=== PATIENT | female | born 1960 ===

== ENCOUNTER 2017-12-09 01:26 | Inpatient (IN) | payer OTHER ==
--- NOTE | 2017-12-01 15:38 | History & Physical Pre-Op ---
General Information and [facility] MD Statement: I have seen and personally examined NIKI LIANG and documented this H &P. The patient is a 56 year old F who presented with a patient stated chief complaint of centralized low back pain radiating to her right anterior thigh and into her knee, predominantly with occasional left buttock, posterior thigh, and right calf pain. Source of Information: patient, old records Exam Limitations: no limitations History of Present Illness: Niki is a 57-year-old woman who is complaining of progressively worsening centralized low back pain that radiates predominantly into her right anterior thigh and into her knee. She will occasionally experience pain into her right calf and along her left posterior thigh into her knee. She has experienced occasional numbness into her right foot. She states the pain is a 10/10 in intensity with standing or walking. She denies any bowel or bladder changes. She does feel as if her legs are heavy and weak. She is unable to continue with her normal activities of daily living. Niki's MRI scan shows severe degenerative changes at L2-3, L3-4, L4-5, and L5-S1. She does have spondylolisthesis at L4-5 with facet arthropathy and lateral stenosis at all 3 levels, significantly less, but present at L5-S1. Niki is status post right L4-5 and L5-S1 lumbar decompression and fusion with local bone from June 2013 and is status post revision posterior lumbar decompression fusion with local bone at L1-2, L2-3, L3-4, and L4-5 from September 2013. Due to Niki's progressively worsening symptoms and MRI findings, she wants nothing more to do with nonsurgical treatment. 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 She has been consented for a revision posterior lumbar decompression and fusion with inspection of fusion and possible Instrumentation with iliac crest bone grafting L2-S1 on 12/09/2017. Allergies/Medications Allergies: Coded Allergies: Penicillins (RASH 12/05/17) azithromycin (NAUSEA 12/05/17) ciprofloxacin (From CIPRO) (UNKNOWN 12/05/17) Home Med list Calcium Carbonate/Vitamin D3 (Calcium 500 + D Tablet) (Unknown Strength) TABLET (Unknown Dose) PO DAILY SUPPLEMENT (Reported) Multivitamin/Iron/Folic Acid (Multi-Day Plus Iron Tablet) (Unknown Strength) TABLET (Unknown Dose) PO DAILY SUPPLEMENT (Reported) Compliance With Home Meds: GOOD Past History Medical History Neurological: NONE EENT: NONE Cardiovascular: NONE Respiratory: NONE Gastrointestinal: NONE Hepatic: NONE Renal: nephrolithiasis Musculoskeletal: chronic back pain, disk herniation, degen joint disease, osteoarthritis, sciatica, spinal stenosis Psychiatric: NONE Endocrine: obesity Blood Disorders: anemia Cancer(s): NONE 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 PLDF L1-2, L2-3, L3-4, and L4-5 with local bone 09/13/2013 Past Family/Social History Family History Relations & Conditions if any MOTHER (Alive and Well). Age 79. FATHER, , Age 70s; Cause: Myocardial infarction. BROTHER (Diabetes). Psychosocial History Where Do You Live? Home Primary Language: Divehi Smoking Status: Former Smoker (quit 16 years ago) ETOH Use: occasional use (2x/week) Illicit Drug Use: denies illicit drug use Other Social History: . 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 Medication List Current Psychiatric Med(s): Arcoxia 60mg daily-stopped 11/25/17 Multivitamin with Iron daily Calcium with Vitamin D daily Exam & Diagnostic Data Last 24 Hrs of Vital Signs/I&O Height: 5'6" Weight: 300lbs. Physical Exam General Appearance Alert, Oriented X3, Cooperative, Mild Distress Skin No Rashes, No Breakdown, No Significant Lesion HEENT Atraumatic, PERRLA, EOMI, Mucous Membr. moist/pink Neck Supple, No JVD, No thryomegaly, +2 Carotid Pulse wo Bruit Lymphatic Cervical nl Cardiovascular Regular Rate, Normal S1, Normal S2, No Murmurs Lungs Clear to Auscultation, Normal Air Movement Abdomen Normal Bowel Sounds, Soft, No Tenderness, Globoid Neurological Normal Speech, Normal Tone, Sensation Intact, Weak right Quad +3/5 and +4/5 on the left, Absent bilateral patellar reflexes, +1 bilateral achilles reflexes Extremities No Clubbing, No Cyanosis, No Edema Vascular Normal Pulses Assessment/Plan Assessment/Plan: Assessment: DDD L2-3, L3-4, and L4-5 with spondylolisthesis. Facet arthropathy and lateral stenosis at L2-3, L3-4, L4-5, and L5-S1. Plan: Niki is scheduled for a revision posterior lumbar decompression and fusion L2-L5 with laminectomy and possible instrumentation with iliac crest bone grafting at L2-S1 on 12/09/2017. We discussed the procedure in full detail as well as the pre-and postoperative course, follow-up care, and anticipated recovery. We also discussed the do's and don'ts and postoperative discharge instructions. We will get an MRI of the cervical spine during her hospital stay. We discussed the benefits, alternatives, and risks, not to exclude, , paralysis, infection, bleeding, continued pain, failure of the surgery, need for future surgery, DVT, vascular injury, CSF leak, etc., and given these risks, she still wishes to proceed. She is a Spiritism and is aware that blood products may be required if necessary. She acknowledges this and is comfortable receiving a blood transfusion if medically necessary. She is also aware that we will use the Cell Saver. She is scheduled to follow-up with her primary care physician, Dr. Moreno on 11/12/2017 for preoperative clearance. She admits that she has done well with morphine and Percocet for postoperative pain control in the past. She will stop her Arcoxia as of 11/25/2017. Any changes in this patient's plan is based on this patient's outpatient clinical presentation. As Ranked By This Provider Problem List: 1. Osteoarthritis 2. Renal stones 3. Anemia 4. Neck pain Copies To: Kanu RAMIREZ,Kyle Attending MD Review Statement Attending Statement Attending MD Statement: examined this patient, discuss w/resident/PA/SEWING MACHINES SALESPERSON, agreed w/resident/PA/SEWING MACHINES SALESPERSON, reviewed images
[~2017-12-09] VITALS: Ht 168.9 cm; Wt 155.6 kg
[~2017-12-09 01:26] MED LIST: CALCIUM 500 +1 EAC5 PO; MULTI-DAY PLUS1 EACH PO
--- NOTE | 2017-12-09 12:05 | Operative Report ---
Operative/Inv Procedure Report Surgery Date: 12/09/17 Name of Procedure: Lumbosacral inspection of fusion mass L1 S1 laminectomies L1-L2 L3 L4 L5. Discectomy foraminotomy L1 through L5. Pedicle screw fixation bilateral L2-L3. Harvesting iliac crest right posterior bone graft. Reconstruction of graft site with Master graft. Lateral intertransverse process fusion L1-L2, L2-L3, L3-L4, L4-L5, L5-S1. Use of fluoroscopy. Pre-Operative Diagnosis: Spinal stenosis and instability L1 through S1 nonunion previous fusion lumbosacral spine. Post-Operative Diagnosis: Same Estimated Blood Loss: 500cc Surgeon/Historic Sites Registrar: Kanu RAMIREZ,Kyle Mcdonnell M.D. Anesthesia: general endotracheal tube Monitors: Neuro Operative/Procedure Note Note: After adequate general anesthesia was achieved the patient was placed in the prone position. The back and iliac crest were sterilely prepped and draped. The previous incision was used and extended several centimeters distally and proximally. The dissection was carried down to the dorsal elements from L1 to the sacrum. The previous fusion was inspected and found to contain nonunions. The high-speed bur was used to decorticate scar tissue. The previous laminectomy sites were easily identified. Laminectomies were performed at L1-L2 L3-L4 and L5. The pedicle screw instrumentation was used to create corticotomies and L2 and L3 the pedicles were identified with the probe tapped tapping at 5.5 and 6.5 mm the ball tip probe was used. The tapping was found to be intracortical. Pedicle screws were then placed bilaterally with excellent purchase at L2 and L3. Fluoroscopy was used during the instrumentation. An incision was made over the right iliac crest and the Colleen retractor was placed. Following subperiosteal dissection of the crest the curettes and osteotomes were used to collect morcellized corticocancellous and cancellous bone. Was irrigated packed with Master graft and Gelfoam and closed in layers with absorbable suture with rashida in the skin. The lateral intertransverse process region was decorticated with the high-speed bur from L1 to the sacrum. Gelfoam was laid over the laminotomy sites. The facets were decorticated with the pencil point bur. The dorsal elements were decorticated with the high-speed bur. Decortication was from L1 to S1 bilaterally. The wound was copiously irrigated Gelfoam remained in place the bone graft was packed laterally performing intertransverse process fusion from L1 to S1. The wound was again irrigated rods were placed and compression was applied across the L2-L3 facet joints which were decorticated with the pencil point bur. The rods were locked in the position construct was checked in AP and lateral plane and found to be appropriate using fluoroscopy. Wound was copiously irrigated and a closure the lumbodorsal fascia was performed with absorbable suture as was subcutaneous tissue the skin was closed with nylon. After placement of the pedicle screws the neuro monitoring device was used and all screws were found to be no response. After placement sterile bandages the patient was log rolled onto the stretcher and taken to the recovery room.
--- NOTE | 2017-12-09 13:34 | Patient Discharge Instructions ---
Acute Coronary Syndrome Inclusion Criteria At DC or during hospital stay patient has or had the following: ACS DIAGNOSIS No Discharge Core Measures Meds if any: Prescribed or Continued at Discharge Meds if any: NOT Prescribed or Continued at Discharge Congestive Heart Failure Inclusion Criteria At DC or during hospital stay patient has or had the following: CHF DIAGNOSIS No Discharge Core Measures Meds if any: Prescribed or Continued at Discharge Meds if any: NOT Prescribed or Continued at Discharge Cerebrovascular accident Inclusion Criteria At DC or during hospital stay patient has or had the following: CVA/TIA Diagnosis No Discharge Core Measures Meds if any: Prescribed or Continued at Discharge Meds if any: NOT Prescribed or Continued at Discharge Venous thromboembolism Inclusion Criteria VTE Diagnosis No VTE Type NONE VTE Confirmed by (Test) NONE Discharge Core Measures - Per Current guidelines, there needs to be overlap - treatment for the first 5 days of Warfarin therapy. - If discharged on Warfarin prior to 5 days of - overlap therapy, the patient will need to be - assessed for post discharge needs including - *Post discharge parental anticoagulation - *Warfarin and/or parental anticoagulation education - *Follow up date to check INR post discharge At least 5 days overlap therapy as Inpatient No Meds if any: Prescribed or Continued at Discharge Note: Overlap Therapy is Warfarin and Anticoagulant Meds if any: NOT Prescribed or Continued at Discharge
[2017-12-09] MEDS ORDERED: MULTIVITAMINS1 EAC9 PO (13:38)
[2017-12-09] MEDS ORDERED: VITAMIN D31000 UNI2 PO (13:38)
[2017-12-09] MEDS ORDERED: COLACE100 M1 PO (13:38)
[2017-12-09] MEDS ORDERED: DULCOLAX10 M1 RC (13:38)
[2017-12-09] MEDS ORDERED: MILK OF MA400 MG/52 PO (13:38)
[2017-12-09] MEDS ORDERED: OS-CAL 500+D31 EAC1 PO (13:38)
[2017-12-09] MEDS ORDERED: PERCOCET 5-3251 EACH PO (13:38)
[2017-12-09] MEDS ORDERED: TYLENOL EXTRA500 M2 PO (13:38)
[2017-12-09 13:49] LABS: ABSOLUTE BASOPHIL COUNT 0 /CUMM (0.0-0.2); ABSOLUTE EOSINOPHIL COUNT 0 /CUMM (0.0-0.7); ABSOLUTE MONOCYTE COUNT 0.2 /CUMM (0.10-0.60); HEMATOCRIT 35.9 % (37-47)
[2017-12-09 13:57] LABS: ABSOLUTE GRANULOCYTE CT 9.6 /CUMM (1.4-6.5); ABSOLUTE LYMPH COUNT 0.5 /CUMM (1.2-3.4); BASOPHIL % 0.1 % (0.0-2.0); EOSINOPHIL % 0 % (0-5); MEAN CORPUSCULAR HGB 29.5 PG (27.0-31.0); MEAN CORPUSCULAR HGB CONC 32.1 G/DL (33.0-37.0); MEAN CORPUSCULAR VOLUME 92.1 FL (81.0-99.0); MEAN PLATELET VOLUME 7.2 FL (7.4-10.4); PLATELET COUNT 250 /CUMM (130-400); RBC DISTRIBUTION WIDTH 14.3 % (11.5-14.5); WHITE BLOOD CELL COUNT 10.4 /CUMM (4.8-10.8)
[2017-12-09 14:06] LABS: GRANULOCYTE % 92.6 % (42.2-75.2)
[2017-12-09 15:30] VITALS: BP 132/72
--- NOTE | 2017-12-09 15:31 | PN- Orthopedic ---
Subjective Subjective: Postop check: Patient comfortable, pain medication is effective. She denies any neurologic symptoms in the lower extremities except for very mild right dorsal foot numbness which she believes is around the same as preoperatively. Santos has been removed, awaiting void. Objective Vital Signs and I&Os Intake & Output 12/09 1600 12/09 0800 12/09 0000 12/08 1600 12/08 0800 12/08 0000 Intake Total Output Total Balance Patient 300 lb Weight Vital signs stable, afebrile Physical Exam: Well-developed well-nourished no apparent distress. HEENT: Atraumatic, extraocular motion intact Neck: Supple, no lymphadenopathy Respiratory: No respiratory distress Back: Dressing clean dry and intact, Bilateral lower extremities with sensation motor grossly intact, no focal deficits Extremities: No edema, no calf pain Neuro: Alert and oriented x3 Psych: Mood affect normal, normal memory normal judgment. Skin: Warm and dry, no rash on exposed skin Assessment/Plan Assessment/Plan Postoperative day #0 status post Lumbosacral inspection of fusion mass L1-S1, laminectomies L1-L2 L3 L4 L5. Discectomy foraminotomy L1 through L5. Pedicle screw fixation bilateral L2-L3, fusion L1-L2, L2-L3, L3-L4, L4-L5, L5-S1. Secondary to Spinal stenosis and instability L1 through S1 nonunion previous fusion lumbosacral spine. Perioperative antibiotics. Pain medication as needed. Out of bed Due to void after Santos removal Physical therapy, weightbearing as tolerated IV fluids until tolerating adequate by mouth Regular diet Follow a.m. labs ALPS for DVT prophylaxis Regular home meds Dressing change postop day 2 Core Measures Venous Thromboembolism VTE Risk Factors Age>40 No Mechanical VTE Prophylaxis d/t N/A MechProphylax Ordered No VTE Pharm Prophylaxis d/t Other (surgeon preference)
--- NOTE | 2017-12-09 16:18 | RADIOLOGY REPORT ---
EXAMINATION: CR ABDOMEN/INTRAOPERATIVE FLUOROSCOPY CLINICAL INDICATION: L2-S1 laminectomy and fusion in OR COMPARISON: Lumbar spine films dated 09/13/2013. TECHNIQUE/FINDINGS: Fluoroscopic equipment was dedicated to the operating room for the performance of an intraoperative procedure. Several (5) spot films were acquired and are archived in PACS. Please refer to operative notes for procedural detail. FLUOROSCOPY TIME: 40 seconds. IMPRESSION: Administrative dictation for intraoperative fluoroscopy and image archiving in PACS. Please refer to operative notes for details.
[2017-12-09 18:44] VITALS: BP 122/60
[2017-12-09 23:19] VITALS: BP 114/62
[2017-12-10 03:00] VITALS: BP 116/58
[2017-12-10 07:00] VITALS: BP 108/62
[2017-12-10 08:06] LABS: ABSOLUTE BASOPHIL COUNT 0 /CUMM (0.0-0.2); ABSOLUTE EOSINOPHIL COUNT 0 /CUMM (0.0-0.7); EOSINOPHIL % 0 % (0-5); MEAN PLATELET VOLUME 7.6 FL (7.4-10.4)
--- NOTE | 2017-12-10 08:25 | PN- Orthopedic ---
Subjective Subjective: feeling well. pain well controlled, does admit to some neck pain, ambulating to bathroom, voiding spontaneously, denies parasthesias, no cp/sob/n/v. Objective Vital Signs and I&Os Vital Signs Date Time Temp Pulse Resp B/P B/P Pulse O2 O2 Flow FiO2 Mean Ox Delivery Rate 12/10 08 96 Nasal 1.0L Cannula 12/10 0700 98.3 71 18 108/62 96 12/10 0300 98.0 76 18 116/58 94 12/10 0000 96 Nasal 1.0L Cannula 12/09 2319 98.6 68 18 114/62 94 Nasal 1.0L Cannula 12/09 1903 Nasal 1.0L Cannula 12/09 1844 98.6 74 18 122/60 96 Nasal 2.0L Cannula 12/09 1650 94 Nasal 2.0L Cannula 12/09 1530 97.9 68 18 132/72 93 Nasal 3.0L Cannula Intake & Output 12/10 1600 12/10 0800 12/10 0000 12/09 1600 12/09 0800 12/09 0000 Intake Total 980 780 Output Total 400 200 Balance -400 780 780 Intake, IV 500 300 Intake, Oral 480 480 Output, Urine 400 200 Patient 344 lb Weight Weight Standing Scale Measurement Method Physical Exam: gen- nad card- rrr pulm- no audbile wheeze abd-obese nt back- incision w minimal serosang drainage on dressing, wounds clean, no erythema, ttp at incisions, redressed. ext: calves soft nt, alps on. gross motor & sensate intact bl ankles/feet Results Last 48 Hours of Labs: Laboratory Tests 12/10 12/09 0630 1335 Hematology CBC w Diff Pending NO MAN DIFF REQ WBC (4.8 - 10.8 /CUMM) Pending 10.4 RBC (4.20 - 5.40 /CUMM) Pending 3.90 L Hgb (12.0 - 16.0 G/DL) Pending 11.5 L Hct (37 - 47 %) Pending 35.9 L MCV (81.0 - 99.0 FL) Pending 92.1 MCH (27.0 - 31.0 PG) Pending 29.5 MCHC (33.0 - 37.0 G/DL) Pending 32.1 L RDW (11.5 - 14.5 %) Pending 14.3 Plt Count (130 - 400 /CUMM) Pending 250 MPV (7.4 - 10.4 FL) Pending 7.2 L Gran % (42.2 - 75.2 %) 92.6 H Lymphocytes % (20.5 - 51.1 %) 5.3 L Monocytes % (1.7 - 9.3 %) 2.0 Eosinophils % (0 - 5 %) 0 Basophils % (0.0 - 2.0 %) 0.1 Absolute Granulocytes (1.4 - 6.5 /CUMM) 9.6 H Absolute Lymphocytes (1.2 - 3.4 /CUMM) 0.5 L Absolute Monocytes (0.10 - 0.60 /CUMM) 0.2 Absolute Eosinophils (0.0 - 0.7 /CUMM) 0 Absolute Basophils (0.0 - 0.2 /CUMM) 0 Assessment/Plan Assessment/Plan A- POD2 sp L2-S1 lami/fusion, with neck pain, stable. P- prn po pain meds hl ivf last dose postop abx now reg diet as tolerated cbc pdg mri neck today oob, ambulate as tolerated dc planning will dw attending Core Measures Venous Thromboembolism VTE Risk Factors Age>40 No Mechanical VTE Prophylaxis d/t N/A MechProphylax Ordered No VTE Pharm Prophylaxis d/t Other (surgeon preference)
[2017-12-10 08:40] LABS: ABSOLUTE GRANULOCYTE CT 11.1 /CUMM (1.4-6.5); ABSOLUTE LYMPH COUNT 0.8 /CUMM (1.2-3.4); ABSOLUTE MONOCYTE COUNT 1.6 /CUMM (0.10-0.60); BASOPHIL % 0 % (0.0-2.0); GRANULOCYTE % 82.4 % (42.2-75.2); MEAN CORPUSCULAR HGB 29.5 PG (27.0-31.0); PLATELET COUNT 228 /CUMM (130-400); RED BLOOD CELL CT 3.36 /CUMM (4.20-5.40); WHITE BLOOD CELL COUNT 13.4 /CUMM (4.8-10.8)
[2017-12-10 08:43] LABS: HEMATOCRIT 30.9 % (37-47)
--- NOTE | 2017-12-10 13:00 | CT SCAN REPORT ---
EXAMINATION: CT CERVICAL SPINE WITHOUT CONTRAST CLINICAL INFORMATION: Neck pain. COMPARISON: No relevant prior imaging. TECHNIQUE: No relevant prior imaging. DLP: 341.84 mGy-cm FINDINGS: There is nonspecific straightening of the cervical lordosis. Alignment is otherwise normal. Vertebral body heights are preserved. There is no acute fracture. No abnormal prevertebral soft tissue swelling. There is loss of intervertebral disc height with associated sclerotic degenerative endplate changes and disc osteophyte spurring at the levels of C4-C5, C5-C6, and C6-C7. The canal is not well visualized below the level of C4 due to inherent limitations of CT. It is suspected that there is mild canal stenosis at C5-C6 and C6-C7. Asymmetric uncovertebral joint spurring causes moderate left neuroforaminal encroachment at C5-C6 and C6-C7. Mild right neuroforaminal encroachment at C6-C7. Soft tissues of the neck are unremarkable. Visualized lung apices are clear. IMPRESSION: Mild degenerative spondylosis at C4-C5, C5-C6, and C6-C7. No evidence of acute fracture and no spinal subluxation.
[2017-12-10 13:55] VITALS: BP 142/60
--- NOTE | 2017-12-10 15:12 | PN- Orthopedic ---
Dorian SADLER,Miriam 12/10/17 1502: Subjective Subjective: Patient c/o expected postop incisional pain. No leg pain. No numbness. Patient ambulating without difficulty. Voiding without problems. Jeni. po. No N/V, fever /chills, CP, SOB. + Neck pain radiaitng to right arm. Jeni. pain meds. Review of Systems: Remarkable for the above complaints. Objective Vital Signs and I&Os Vital Signs Date Time Temp Pulse Resp B/P B/P Pulse O2 O2 Flow FiO2 Mean Ox Delivery Rate 12/10 1355 98.7 80 20 142/60 96 Room Air 12/10 0800 96 Nasal 1.0L Cannula 12/10 0700 98.3 71 18 108/62 96 12/10 0300 98.0 76 18 116/58 94 12/10 0000 96 Nasal 1.0L Cannula 12/09 2319 98.6 68 18 114/62 94 Nasal 1.0L Cannula 12/09 1903 Nasal 1.0L Cannula 12/09 1844 98.6 74 18 122/60 96 Nasal 2.0L Cannula 12/09 1650 94 Nasal 2.0L Cannula 12/09 1530 97.9 68 18 132/72 93 Nasal 3.0L Cannula Intake & Output 12/10 1600 12/10 0800 12/10 0000 12/09 1600 12/09 0800 12/09 0000 Intake Total 1080 1280 980 780 Output Total 350 800 200 Balance 730 480 780 780 Intake, IV 600 800 500 300 Intake, Oral 480 480 480 480 Output, Urine 350 800 200 Patient 344 lb Weight Weight Standing Scale Measurement Method Physical Exam General Appearance: alert, awake, mild distress Neck: limited range of motion, +Hoffmans on right., Weak right deltoid muscle +3 /5 Respiratory: normal breath sounds Cardiovascular: regular rate/rhythm Abdomen: normal bowel sounds, soft, non-tender Back: Incision C/D/I. Neurologic/Psychiatric: No new or worsening gross motor or sensory loss in floyd. lower extremities. Skin: intact, warm/dry Current Medications: Current Medications Sig/Asim Start time Last Medication Dose Route Stop Time Status Admin Acetaminophen 650 MG Q4P PRN 12/09 1315 AC PO Bisacodyl 10 MG DAILY NEEDED PRN 12/09 1315 AC ME Calcium 600 MG BID 12/09 2200 AC 12/10 PO 1003 Cholecalciferol 1,000 IU DAILY 12/10 1000 AC 12/10 PO 1004 Clindamycin 600 MG IQ8 12/09 1600 DC 12/10 Dextrose/Water 50 ML IV 12/10 08 0757 Clindamycin 600 MG ONCE 12/09 0000 DC IV 12/09 2359 Docusate Sodium 100 MG TID 12/09 1600 AC 12/10 PO 1003 Lactated Ringer's 1,000 ML Q10H 12/09 1330 DC 12/10 IV 0102 Magnesium Hydroxide 30 ML Q8P PRN 12/09 1330 AC PO Morphine Sulfate 1 MG Q3P PRN 12/09 1315 DC 12/09 IV 1540 Multivitamins 1 TAB DAILY 12/10 1000 AC 12/10 PO 1004 Ondansetron HCl 4 MG Q6P PRN 12/09 1315 AC IV Oxycodone/ 1 TAB Q4P PRN 12/09 1315 AC Acetaminophen PO Oxycodone/ 2 TAB Q4P PRN 12/09 1315 AC 12/10 Acetaminophen PO 1202 Patient Medication 1 ED ONE ONE 12/10 1045 DC Teaching ED 12/10 1046 Trimethobenzamide HCl 200 MG Q6P PRN 12/09 1315 AC IM Results Last 48 Hours of Labs: Laboratory Tests 12/10 12/09 0630 1335 Hematology CBC w Diff NO MAN DIFF REQ NO MAN DIFF REQ WBC (4.8 - 10.8 /CUMM) 13.4 H 10.4 RBC (4.20 - 5.40 /CUMM) 3.36 L 3.90 L Hgb (12.0 - 16.0 G/DL) 9.9 L 11.5 L Hct (37 - 47 %) 30.9 L 35.9 L MCV (81.0 - 99.0 FL) 92.0 92.1 MCH (27.0 - 31.0 PG) 29.5 29.5 MCHC (33.0 - 37.0 G/DL) 32.0 L 32.1 L RDW (11.5 - 14.5 %) 14.0 14.3 Plt Count (130 - 400 /CUMM) 228 250 MPV (7.4 - 10.4 FL) 7.6 7.2 L Gran % (42.2 - 75.2 %) 82.4 H 92.6 H Lymphocytes % (20.5 - 51.1 %) 5.9 L 5.3 L Monocytes % (1.7 - 9.3 %) 11.7 H 2.0 Eosinophils % (0 - 5 %) 0 0 Basophils % (0.0 - 2.0 %) 0 0.1 Absolute Granulocytes (1.4 - 6.5 /CUMM) 11.1 H 9.6 H Absolute Lymphocytes (1.2 - 3.4 /CUMM) 0.8 L 0.5 L Absolute Monocytes (0.10 - 0.60 /CUMM) 1.6 H 0.2 Absolute Eosinophils (0.0 - 0.7 /CUMM) 0 0 Absolute Basophils (0.0 - 0.2 /CUMM) 0 0 Assessment/Plan Assessment/Plan Assessment: 1. s/p Rev. PLDF L1-S1 with Instr. (L2-3) and ICBG (L1-S1). 2. Neck Pain with DDD/Stenosis Plan: Continue po pain meds. Ambulate with PT Bowel regimen Plan for ACDF/PCDF on 12/12/17 Will F/U in am. Check CBC in am Problem List: 1. Anemia 2. Renal stones 3. Osteoarthritis 4. Neck pain Core Measures Venous Thromboembolism VTE Risk Factors Surgery No Mechanical VTE Prophylaxis d/t Early Ambulation No VTE Pharm Prophylaxis d/t Surgical Contraindication (surgeon preference) Attending MD Review Statement Attending Statement Attending MD Statement: examined this patient, discuss w/resident/PA/IRON MELTER, agreed w/resident/PA/IRON MELTER
[2017-12-10 22:23] VITALS: BP 120/70
[2017-12-11 06:00] VITALS: BP 136/72
--- NOTE | 2017-12-11 07:52 | PN- Orthopedic ---
Subjective Subjective: Awake, alert Sitting up eating - tolerating diet No complaints overnight Pain is controlled with meds Awaiting OR in AM Objective Vital Signs and I&Os Vital Signs Date Time Temp Pulse Resp B/P B/P Pulse O2 O2 Flow FiO2 Mean Ox Delivery Rate 12/11 0600 100.3 97 18 136/72 92 12/10 2223 99.8 99 20 120/70 96 Room Air 12/10 1355 98.7 80 20 142/60 96 Room Air 12/10 0800 96 Nasal 1.0L Cannula Intake & Output 12/11 0812/11 0000 12/10 1600 12/10 0812/10 0000 12/09 1600 Intake Total 474 591 6845 1280 980 780 Output Total 1600 1000 350 800 200 Balance -1500 -90 730 480 780 780 Intake, IV 10 600 800 500 300 Intake, Oral 100 900 480 480 480 480 Number 0 Bowel Movements Output, Urine 1600 1000 350 800 200 Patient 344 lb Weight Weight Standing Scale Measurement Method Physical Exam: Gen: alert and oriented times three Chest: Clear anteriorly bilaterally Abd: normal bowel sounds, soft, non-tender Wd: dressing clean and dry Neuro: No new or worsening gross motor or sensory loss in floyd. 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 otherwise LUE WNL Current Medications: Current Medications Sig/Asim Start time Last Medication Dose Route Stop Time Status Admin Acetaminophen 650 MG Q4P PRN 12/09 1315 AC PO Bisacodyl 10 MG DAILY NEEDED PRN 12/09 1315 AC AZ Calcium 600 MG BID 12/09 2200 AC 12/10 PO 2028 Cholecalciferol 1,000 IU DAILY 12/10 1000 AC 12/10 PO 1004 Clindamycin 600 MG IQ8 12/09 1600 DC 12/10 Dextrose/Water 50 ML IV 12/10 0829 0757 Docusate Sodium 100 MG TID 12/09 1600 AC 12/10 PO 2029 Lactated Ringer's 1,000 ML Q10H 12/09 1330 DC 12/10 IV 0102 Magnesium Hydroxide 30 ML Q8P PRN 12/09 1330 AC PO Morphine Sulfate 1 MG Q3P PRN 12/09 1315 DC 04 IV 1540 Multivitamins 1 TAB DAILY 12/10 1000 AC 12/10 PO 1004 Ondansetron HCl 4 MG Q6P PRN 12/09 1315 AC IV Oxycodone/ 1 TAB Q4P PRN 12/09 1315 AC Acetaminophen PO Oxycodone/ 2 TAB Q4P PRN 12/09 1315 AC 12/11 Acetaminophen PO 0735 Patient Medication 1 ED ONE ONE 12/10 1045 DC Teaching ED 12/10 1046 Trimethobenzamide HCl 200 MG Q6P PRN 12/09 1315 AC IM Assessment/Plan Assessment/Plan 57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
[2017-12-11 08:15] LABS: ABSOLUTE BASOPHIL COUNT 0.1 /CUMM (0.0-0.2); ABSOLUTE EOSINOPHIL COUNT 0 /CUMM (0.0-0.7); ABSOLUTE GRANULOCYTE CT 12.7 /CUMM (1.4-6.5); ABSOLUTE LYMPH COUNT 1.9 /CUMM (1.2-3.4); BASOPHIL % 0.3 % (0.0-2.0); EOSINOPHIL % 0.1 % (0-5); GRANULOCYTE % 76.1 % (42.2-75.2); HEMATOCRIT 27.4 % (37-47); MEAN CORPUSCULAR HGB 29.9 PG (27.0-31.0); MEAN CORPUSCULAR HGB CONC 32.7 G/DL (33.0-37.0); MEAN CORPUSCULAR VOLUME 91.5 FL (81.0-99.0); RBC DISTRIBUTION WIDTH 14.2 % (11.5-14.5); RED BLOOD CELL CT 2.99 /CUMM (4.20-5.40); WHITE BLOOD CELL COUNT 16.7 /CUMM (4.8-10.8)
[2017-12-11 14:23] VITALS: BP 124/76
--- NOTE | 2017-12-11 16:08 | PN- Orthopedic ---
Subjective Subjective: Patient doing well. No preop leg pain. Ambulating with PT/Nursing without difficulty. + NEck pain radiating to right arm/trap. No N/V. Jeni. po. No pain meds needed. + Voiding and flatus. Review of Systems: Remarkable for the above complaints. Objective Vital Signs and I&Os Vital Signs Date Time Temp Pulse Resp B/P B/P Pulse O2 O2 Flow FiO2 Mean Ox Delivery Rate 12/11 1423 99.0 94 20 124/76 96 Room Air 12/11 1100 98.4 12/11 0600 100.3 97 18 136/72 92 12/10 2223 99.8 99 20 120/70 96 Room Air Intake & Output 12/11 1600 12/11 0800 12/11 0000 12/10 1600 12/10 0812/10 0000 Intake Total 500 751 183 9382 1280 1760 Output Total 1200 1600 1000 350 800 200 Balance -700 -1500 -90 507 578 3452 Intake, IV 0 10 600 800 800 Intake, Oral 500 100 900 480 480 960 Number 0 0 Bowel Movements Output, Urine 1200 1600 1000 350 800 200 Patient 344 lb Weight Weight Standing Scale Measurement Method Physical Exam General Appearance: well developed/nourished, no apparent distress, alert, awake , comfortable Neck: limited range of motion, + Hoffmans on right. Weak right deltoid. +3/5 Respiratory: normal breath sounds, no respiratory distress Cardiovascular: regular rate/rhythm Abdomen: soft, non-tender, + globoid Back: Incisions C/D/I. Dressings changed. Neurologic/Psychiatric: Neurovascularly stable in bilateral lower extremities with no new or worsening gross motor or sensory loss. Skin: intact, normal color, warm/dry Assessment/Plan Assessment/Plan Assessment: 1. S/P Rev. PLDF L2-3 with Instr. and L1-S1 with ICBG. 2. 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 NPO after MN IVF after MN Plan for ACDF/PCDF C4-7 on 12/12/17. Will F/U in am. Problem List: 1. Anemia 2. Renal stones 3. Osteoarthritis 4. Neck pain Core Measures Venous Thromboembolism VTE Risk Factors Surgery No Mechanical VTE Prophylaxis d/t Early Ambulation No VTE Pharm Prophylaxis d/t Surgical Contraindication (surgeon preference) Attending MD Review Statement Attending Statement Attending MD Statement: examined this patient, discuss w/resident/PA/CUT OFF [employer]WYER SHINGLE MILL, agreed w/resident/PA/C[employer]INGLE [employer]
[2017-12-11 18:30] VITALS: BP 130/60
[2017-12-12 05:34] VITALS: BP 120/78
--- NOTE | 2017-12-12 11:56 | Operative Report ---
Operative/Inv Procedure Report Surgery Date: 12/12/17 Name of Procedure: Anterior cervical discectomy fusion C4 5 C5-C6 C6 7 with interdiscal cage and autologous iliac crest bone graft through plate fixation C4 to C7. Harvesting of left anterior structural bone graft iliaccrest. Master graft implant graft site should fluoroscopy. Pre-Operative Diagnosis: Cervical kyphosis and disc herniation C4 5 C5 6 C6 7 cervical myelopathy. Post-Operative Diagnosis: Same Estimated Blood Loss: 50ml to 100ml Surgeon/Practice Director: Kanu RAMIREZ,Kyle Garcia MD Anesthesia: general endotracheal tube Operative/Procedure Note Note: After induction of general anesthesia patient was placed in the supine position with the head turned to the left and the shoulders taped to the side. The left anterior iliac crest and right side of the neck were sterilely prepped and draped. An incision was made along the skin crease carried sharply through the platysma. Dissection was carried medial to the neurovascular bundle lateral to the visceral structures and a bent needle was placed within the disc space and fluoroscopy was used to identify surgical level. Deep retractors were placed in a sharp annulotomy was created in the significantly degenerative disks at C56 and C6 7 the disks were debrided with the high-speed bur is obvious bone on bone contact at C5 6 and C6 7 less so at C4 5. Sharp annulotomy was created C4 5 and the debridement of the disc space was carried posteriorly at all 3 levels through the annulus and posterior longitudinal ligament. There is significant stenosis on the right side and the foramen at C56 and C6 7. The endplates were debrided with the high-speed bur the wound was packed and incision was made of the left anterior iliac crest and a subperiosteal dissection was carried medial and lateral to the crest deep retractors were placed. Nestling so was used to collect a structural tricortical graft was irrigated packed with Master graft closed in layers with double suture and rashida in the skin. Trials were used and 6 mm disks implants were selected for each level the cages were packed with bone graft and tamped into position at C4 5 C5 6 and C6 7. An anterior plate was then applied with excellent purchase in all 8 screws. The construct was checked in AP and lateral plane and found to be appropriate. The wound was irrigated hemostasis been achieved. A closure of the platysma was performed with absorbable suture the skin was closed with subcuticular nylon. The patient was prepared for posterior procedure.
[2017-12-12 14:30] VITALS: BP 128/70
--- NOTE | 2017-12-12 16:01 | PN- Orthopedic ---
Subjective Subjective: POST-OP NOTE Reports some neck discomfort. Taking ice chips. No nausea. Not yet out of bed. No dizziness. No shortness of breath. No chest pains. Objective Vital Signs and I&Os Vital Signs Date Time Temp Pulse Resp B/P B/P Pulse O2 O2 Flow FiO2 Mean Ox Delivery Rate 12/12 1430 98.4 65 16 128/70 92 Nasal 2.0L Cannula 12/12 05 98.2 85 22 120/78 98 Room Air 12/11 2100 98.7 12/11 1830 100.7 97 18 130/60 94 Room Air Intake & Output 12/12 1600 12/12 0800 12/12 0000 12/11 1600 12/11 0812/11 0000 Intake Total 1800 675 490 600 100 910 Output Total 935 0746 445 0689 1600 1000 Balance 865 -775 40 -600 -1500 -90 Intake, IV 1800 675 0 10 Intake, Oral 490 600 100 900 Number 0 0 Bowel Movements Output, Urine 935 2757 620 9280 1600 1000 Physical Exam: General - alert & oriented x 3. comfortable. no acute distress. Neck - soft cervical collar in place. dressing c/d/i. no hematoma. no drains. Lungs - clear bilaterally. no w/r/r Cardiac - s1s2. reg. Abdomen - soft. nontender. Extremities - warm bilaterally. finisher special stocks strength weaker on left than right. sensation intact / equal. lower legs warm bilaterally. no c/c/e. calves soft and nontender b/l. athrombics in place. Current Medications: Current Medications Sig/Asim Start time Last Medication Dose Route Stop Time Status Admin Acetaminophen 650 MG Q4P PRN 12/12 1445 AC PO Acetaminophen 650 MG Q4P PRN 12/12 1300 AC PO Acetaminophen 650 MG .STK-MED ONE 12/11 1936 DC PO 12/11 1937 Acetaminophen 650 MG Q4P PRN 12/09 1315 DC PO Bisacodyl 10 MG DAILY NEEDED PRN 12/12 1445 AC IA Bisacodyl 10 MG DAILY NEEDED PRN 12/09 1315 DC IA Calcium 600 MG BID 12/12 2199 AC PO Calcium 600 MG BID 12/09 2199 DC 12/11 PO 2113 Cholecalciferol 1,000 IU DAILY 12/13 1000 AC PO Cholecalciferol 1,000 IU DAILY 12/10 1000 DC 12/11 PO 0956 Clindamycin 600 MG IQ8 12/12 1600 AC Dextrose/Water 50 ML IV 12/13 0829 Docusate Sodium 100 MG TID 12/12 1600 AC PO Docusate Sodium 100 MG TID 12/09 1600 DC 12/11 PO 2113 Lactated Ringer's 1,000 ML Q10H 12/12 1315 AC 12/12 IV 1453 Lactated Ringer's 1,000 ML Q13H 12/12 0000 DC 12/12 IV 0018 Magnesium Hydroxide 30 ML Q8P PRN 12/12 1445 AC PO Magnesium Hydroxide 30 ML Q8P PRN 12/09 1330 DC PO Morphine Sulfate 1 MG Q3P PRN 12/12 1300 AC IV Multivitamins 1 TAB DAILY 12/13 1000 AC PO Multivitamins 1 TAB DAILY 12/10 1000 DC 12/11 PO 0955 Ondansetron HCl 4 MG Q6P PRN 12/12 1445 AC IV Ondansetron HCl 4 MG Q6P PRN 12/09 1315 DC IV Oxycodone/ 1 TAB Q4P PRN 12/12 1445 AC Acetaminophen PO Oxycodone/ 2 TAB Q4P PRN 12/12 1445 AC Acetaminophen PO Oxycodone/ 1 TAB Q4P PRN 12/09 1315 DC Acetaminophen PO Oxycodone/ 2 TAB Q4P PRN 12/09 1315 DC 12/12 Acetaminophen PO 0550 Trimethobenzamide HCl 200 MG Q6P PRN 12/12 1445 AC IM Trimethobenzamide HCl 200 MG Q6P PRN 12/09 1315 DC IM Results Last 48 Hours of Labs: Laboratory Tests 12/11 637 Hematology CBC w Diff MAN DIFF ORDERED WBC (4.8 - 10.8 /CUMM) 16.7 H RBC (4.20 - 5.40 /CUMM) 2.99 L Hgb (12.0 - 16.0 G/DL) 8.9 L Hct (37 - 47 %) 27.4 L MCV (81.0 - 99.0 FL) 91.5 MCH (27.0 - 31.0 PG) 29.9 MCHC (33.0 - 37.0 G/DL) 32.7 L RDW (11.5 - 14.5 %) 14.2 Plt Count (130 - 400 /CUMM) Gran % (42.2 - 75.2 %) 76.1 H Lymphocytes % (20.5 - 51.1 %) 11.2 L Monocytes % (1.7 - 9.3 %) 12.3 H Eosinophils % (0 - 5 %) 0.1 Basophils % (0.0 - 2.0 %) 0.3 Absolute Granulocytes (1.4 - 6.5 /CUMM) 12.7 H Absolute Lymphocytes (1.2 - 3.4 /CUMM) 1.9 Absolute Monocytes (0.10 - 0.60 /CUMM) 2.0 H Absolute Eosinophils (0.0 - 0.7 /CUMM) 0 Absolute Basophils (0.0 - 0.2 /CUMM) 0.1 Hypochromic-Microcytic 2+ Poikilocytosis 2+ Anisocytosis 2+ Ovalocytes 2+ Elliptocytes 1+ Assessment/Plan Assessment/Plan This 57 year old female is POD#0 s/p acdf C4-5, C5-C6, C6-7 with interdiscal cage and autologous iliac crest bone graft through plate fixation C4 to C7, with harvesting of left anterior structural bone graft iliaccrest, for history of cervical kyphosis and disc herniation C4-5, C5-6, C6-7 cervical myelopathy. 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
--- NOTE | 2017-12-12 16:14 | RADIOLOGY REPORT ---
EXAMINATION: CR CERVICAL SPINE/INTRAOPERATIVE FLUOROSCOPY CLINICAL INDICATION: ACD C4-C7. Laminectomy with fusion in OR. COMPARISON: CT scan of the cervical spine dated 12/10/2017. TECHNIQUE/FINDINGS: Fluoroscopic equipment was dedicated to the operating room for the performance of an intraoperative procedure. Several (4) spot films were acquired and are archived in PACS. Please refer to operative notes for procedural detail. FLUOROSCOPY TIME: 0.4 minutes. IMPRESSION: Administrative dictation for intraoperative fluoroscopy and image archiving in PACS. Please refer to operative notes for details.
[2017-12-12 19:26] VITALS: BP 110/60
[2017-12-12 23:10] VITALS: BP 124/78
[2017-12-12 23:41] VITALS: BP 134/74
[2017-12-13 03:39] VITALS: BP 118/72
[2017-12-13 08:00] VITALS: BP 112/76
[2017-12-13 12:07] VITALS: BP 114/86
--- NOTE | 2017-12-13 14:47 | PN- Att Addend ---
Attending Addendum Attending Brief Note Patient seen and examined. Plan of care discussed with the medical team and the patient. Available lab work and radiology test reports were reviewed. Patient sitting up in chair eating her lunch. She complains of a mild to moderate pain in the neck and lower back. Denies any recent fever chills nausea vomiting abdominal pain or chest pain or difficulty breathing. Exam: General: Patient awake alert oriented without any distress ; neck collar is noted CVS: S1 plus S2 without any murmur or gallops Chest: Few scattered crepitation without any wheeze. There is no respiratory distress. Abdomen: Soft non-tender, bowel sound present, no guarding or rebound STAKE DRIVER: Awake alert oriented without any focal neuro deficit and follows commands appropriately Extremities: No edema; no clubbing or cyanosis noted Assessment Status post lumbar and cervical spine surgery History spinal stenosis History chronic pain Elevated WBC count of unclear etiology Mild anemia Plan Consider checking UA and chest x-ray Incentive spirometry Check BP Monitor for any fever Repeat CBC tomorrow Current Medications Sig/Asim Start time Last Medication Dose Route Stop Time Status Admin Acetaminophen 650 MG Q4P PRN 12/12 1445 AC PO Acetaminophen 650 MG Q4P PRN 12/12 1300 AC PO Bisacodyl 10 MG DAILY NEEDED PRN 12/12 1445 AC GA Calcium 600 MG BID 12/12 2200 AC 12/13 PO 0930 Cholecalciferol 1,000 IU DAILY 12/13 1000 AC 12/13 PO 0930 Clindamycin 600 MG IQ8 12/12 1600 DC 12/13 Dextrose/Water 50 ML IV 12/13 0829 0838 Docusate Sodium 100 MG TID 12/12 1600 AC 12/13 PO 0930 Lactated Ringer's 1,000 ML Q10H 12/12 1315 AC 12/13 IV 0514 Magnesium Hydroxide 30 ML Q8P PRN 12/12 1445 AC PO Morphine Sulfate 1 MG Q3P PRN 12/12 1300 AC IV Multivitamins 1 TAB DAILY 12/13 1000 AC 12/13 PO 0930 Ondansetron HCl 4 MG Q6P PRN 12/12 1445 AC IV Oxycodone/ 1 TAB Q4P PRN 12/12 1445 AC Acetaminophen PO Oxycodone/ 2 TAB Q4P PRN 12/12 1445 AC 12/13 Acetaminophen PO 0930 Trimethobenzamide HCl 200 MG Q6P PRN 04/06 1445 AC IM Laboratory Tests 12/11/17 0638: CBC w Diff MAN DIFF ORDERED, RBC 2.99 L, MCV 91.5, MCH 29.9, MCHC 32.7 L, RDW 14.2, Gran % 76.1 H, Lymphocytes % 11.2 L, Monocytes % 12.3 H, Eosinophils % 0.1, Basophils % 0.3, Absolute Granulocytes 12.7 H, Absolute Lymphocytes 1.9, Absolute Monocytes 2.0 H, Absolute Eosinophils 0, Absolute Basophils 0.1, Hypochromic-Microcytic 2+, Poikilocytosis 2+, Anisocytosis 2+, Ovalocytes 2+, Elliptocytes 1+ Microbiology 12/12 09 URINE ROUT: Urine Culture - RES GRAM NEGATIVE RODS Vital Signs Date Time Temp Pulse Resp B/P B/P Pulse O2 O2 Flow FiO2 Mean Ox Delivery Rate 12/13 1207 98.5 79 20 114/86 96 12/13 0800 97.4 86 20 112/76 93 12/13 0339 98.0 80 20 118/72 97 12/13 0000 96 Nasal 2.0L Cannula 12/12 2341 99.1 95 20 134/74 96 12/12 2310 99.2 101 18 124/78 96 Nasal 2.0L Cannula 12/12 1926 99.4 83 18 110/60 96 Nasal 3.0L Cannula 12/12 1600 93 Nasal 2.0L Cannula Intake & Output 12/13 1600 12/13 0800 12/13 0000 Intake Total 850 1670 Output Total 1000 1600 Balance -1000 850 70 Intake, IV 250 1210 Intake, Oral 600 460 Number 0 Bowel Movements Output, Urine 1000 1600 Patient 343 lb Weight
[2017-12-13 21:46] VITALS: BP 124/62
[2017-12-14 06:02] VITALS: BP 146/80
[2017-12-14 08:16] LABS: ABSOLUTE BASOPHIL COUNT 0 /CUMM (0.0-0.2); ABSOLUTE EOSINOPHIL COUNT 0.1 /CUMM (0.0-0.7); ABSOLUTE GRANULOCYTE CT 6.8 /CUMM (1.4-6.5); ABSOLUTE LYMPH COUNT 1.4 /CUMM (1.2-3.4); ABSOLUTE MONOCYTE COUNT 1.2 /CUMM (0.10-0.60); BASOPHIL % 0.2 % (0.0-2.0); EOSINOPHIL % 0.6 % (0-5); GRANULOCYTE % 71.4 % (42.2-75.2); HEMATOCRIT 25.3 % (37-47); MEAN CORPUSCULAR HGB 29.7 PG (27.0-31.0); MEAN CORPUSCULAR HGB CONC 32.7 G/DL (33.0-37.0); MEAN CORPUSCULAR VOLUME 90.9 FL (81.0-99.0); MEAN PLATELET VOLUME 7.3 FL (7.4-10.4); PLATELET COUNT 248 /CUMM (130-400); RBC DISTRIBUTION WIDTH 13.9 % (11.5-14.5); RED BLOOD CELL CT 2.78 /CUMM (4.20-5.40); WHITE BLOOD CELL COUNT 9.5 /CUMM (4.8-10.8)
--- NOTE | 2017-12-14 12:52 | PN- Att Addend ---
Attending Addendum Attending Brief Note Patient seen and examined. Plan of care discussed with the medical team and the patient. Available lab work and radiology test reports were reviewed. Patient sitting up in chair and appears sleepy this morning. She complains of a mild pain in the neck and lower back. Denies any recent fever chills nausea vomiting abdominal pain or chest pain or difficulty breathing. Exam: General: Patient awake alert oriented without any distress ; soft neck collar is noted CVS: S1 plus S2 without any murmur or gallops Chest: Few scattered crepitation without any wheeze. There is no respiratory distress. 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: Awake alert oriented without any focal neuro deficit and follows commands appropriately Extremities: No edema; no clubbing or cyanosis noted Assessment Status post lumbar and cervical spine surgery History spinal stenosis History chronic pain Elevated WBC count of unclear etiology- no to WBC count has decreased to 9.5 Mild anemia Plan Incentive spirometry Check BEP Monitor for any fever Current Medications Sig/Asim Start time Last Medication Dose Route Stop Time Status Admin Acetaminophen 650 MG Q4P PRN 12/12 1445 AC PO Acetaminophen 650 MG Q4P PRN 12/12 1300 AC PO Bisacodyl 10 MG DAILY NEEDED PRN 12/12 1445 AC SD Calcium 600 MG BID 12/12 2200 AC 12/14 PO 0944 Cholecalciferol 1,000 IU DAILY 12/13 1000 AC 12/14 PO 0944 Docusate Sodium 100 MG TID 12/12 1600 AC 12/14 PO 0944 Lactated Ringer's 1,000 ML Q10H 12/12 1315 DC 12/14 IV 0449 Magnesium Hydroxide 30 ML Q8P PRN 12/12 1445 AC 12/14 PO 0944 Morphine Sulfate 1 MG Q3P PRN 12/12 1300 AC IV Multivitamins 1 TAB DAILY 12/13 1000 AC 12/14 PO 0944 Ondansetron HCl 4 MG Q6P PRN 12/12 1445 AC IV Oxycodone/ 1 TAB Q4P PRN 12/12 1445 AC Acetaminophen PO Oxycodone/ 2 TAB Q4P PRN 12/12 1445 AC 12/13 Acetaminophen PO 1617 Trimethobenzamide HCl 200 MG Q6P PRN 12/12 1445 AC IM Laboratory Tests 12/14/17 0632: CBC w Diff NO MAN DIFF REQ, RBC 2.78 L, MCV 90.9, MCH 29.7, MCHC 32.7 L, RDW 13.9, MPV 7.3 L, Gran % 71.4, Lymphocytes % 15.1 L, Monocytes % 12.7 H, Eosinophils % 0.6, Basophils % 0.2, Absolute Granulocytes 6.8 H, Absolute Lymphocytes 1.4, Absolute Monocytes 1.2 H, Absolute Eosinophils 0.1, Absolute Basophils 0 Microbiology 12/12 0920 URINE ROUT: Urine Culture - COMP CITROBACTER KOSERI Vital Signs Date Time Temp Pulse Resp B/P B/P Pulse O2 O2 Flow FiO2 Mean Ox Delivery Rate 12/14 0602 99.2 95 20 146/80 94 12/13 2146 97.9 86 19 124/62 95 Room Air Intake & Output 12/14 1600 12/14 0800 12/14 0000 Intake Total 2250 1150 Output Total 2500 450 Balance -250 700 Intake, IV 1200 Intake, Oral 1050 1150 Output, Urine 2500 450
--- NOTE | 2017-12-14 14:27 | PN- Orthopedic ---
Subjective Subjective: Patient doing well. No BM but + flatus. Voiding without difficulty. Jeni. po. No N/V. Ambulating without difficulty. No Fever/chills/SOB. + Expected postop pain. No leg pain. Review of Systems: Remarkable for the above complaints. Objective Vital Signs and I&Os Vital Signs Date Time Temp Pulse Resp B/P B/P Pulse O2 O2 Flow FiO2 Mean Ox Delivery Rate 12/14 601 99.2 95 20 146/80 94 12/13 2146 97.9 86 19 124/62 95 Room Air Intake & Output 12/14 1600 12/14 0000 12/13 1600 12/13 0000 Intake Total 2250 350 241 388 5583 Output Total 2500 450 1000 1600 Balance -250 -100 -200 850 70 Intake, IV 2323 925 7192 Intake, Oral 1050 350 800 600 460 Number 0 Bowel Movements Output, Urine 2500 450 1000 1600 Patient 343 lb Weight Physical Exam General Appearance: well developed/nourished, no apparent distress, alert, awake Neck: Incision C/D/I. Dressings changed. Respiratory: normal breath sounds, no respiratory distress Cardiovascular: regular rate/rhythm Abdomen: normal bowel sounds, soft, non-tender Back: Incsion C/D/I. Dressing changed. Neurologic/Psychiatric: Neurovascularly stable with no new or worsening gross motor or senosry loss. Skin: intact, normal color, warm/dry Assessment/Plan Assessment/Plan Assessment: 1.S/P PLDF with Instr/ICBG 2. S/p ACDF C4-C7 With ICBG/Instr. Plan: Patient is scheduled for PCDF in am. NPO after midnight and IVF started. Continue bowel regimen. Pain meds as needed. Will F/U in am Problem List: 1. Anemia 2. Renal stones 3. Osteoarthritis 4. Neck pain Core Measures Venous Thromboembolism VTE Risk Factors Surgery No Mechanical VTE Prophylaxis d/t Early Ambulation No VTE Pharm Prophylaxis d/t Surgical Contraindication (surgeon preference) Attending MD Review Statement Attending Statement Attending MD Statement: discuss w/resident/PA/SPOR[employer] EQUIPMENT RACKER, agreed w/resident/PA/SPORTS EQUIPMENT RACKER
[2017-12-14 14:49] VITALS: BP 140/78
[2017-12-14 21:49] VITALS: BP 120/72
[2017-12-15 05:54] VITALS: BP 122/78
--- NOTE | 2017-12-15 14:13 | PN- Medicine Consult ---
See Addendum Assessment/PlanMedical Consult Assessment/Plan Assessment: Assessment Status post lumbar and cervical spine surgery History spinal stenosis History chronic pain Elevated WBC count of unclear etiology- no to WBC count has decreased to 9.5 Mild anemia Plan: Plan Incentive spirometry Check BEP Monitor for any fever Problem List: 1. Osteoarthritis 2. Neck pain Subjective Subjective: Patient went to OR for revision Objective Last 24 Hrs of Vital Signs/I&O Vital Signs Date Time Temp Pulse Resp B/P B/P Pulse O2 O2 Flow FiO2 Mean Ox Delivery Rate 12/15 0454 98.2 73 20 122/78 95 12/14 2149 98.8 95 19 120/72 97 Room Air Intake & Output 12/15 1600 12/15 0800 12/15 0000 Intake Total 375 600 480 Output Total 950 Balance 375 600 -470 Intake, IV 375 600 Intake, Oral 0 480 Output, Urine 950 Current Medications: Current Medications Sig/Asim Start time Last Medication Dose Route Stop Time Status Admin Acetaminophen 650 MG Q4P PRN 12/15 1815 AC PO Acetaminophen 650 MG Q4P PRN 12/15 1815 AC PO Acetaminophen 650 MG Q4P PRN 12/12 1445 DC PO Acetaminophen 650 MG Q4P PRN 12/12 1300 DC PO Bisacodyl 10 MG DAILY NEEDED PRN 12/15 1815 AC ME Bisacodyl 10 MG DAILY NEEDED PRN 12/12 1445 DC ME Calcium 600 MG BID 12/15 2200 AC 12/15 PO 2116 Calcium 600 MG BID 12/12 2200 DC 12/15 PO 0912 Cholecalciferol 1,000 IU DAILY 12/16 1000 AC PO Cholecalciferol 1,000 IU DAILY 12/13 1000 DC 12/15 PO 0912 Clindamycin 600 MG IQ8 12/16 0000 AC Dextrose/Water 50 ML IV Docusate Sodium 100 MG TID 12/15 2200 AC 12/15 PO 2115 Docusate Sodium 100 MG TID 12/12 1600 DC 12/15 PO 0912 Lactated Ringer's 1,000 ML Q10H 12/15 1730 AC IV Lactated Ringer's 1,000 ML Q13H 12/15 0000 DC 12/14 IV 2255 Magnesium Hydroxide 30 ML Q8P PRN 12/15 1815 AC PO Magnesium Hydroxide 30 ML Q8P PRN 12/12 1445 DC 12/14 PO 0944 Morphine Sulfate 1 MG Q3P PRN 12/15 1815 AC IV Morphine Sulfate 1 MG Q3P PRN 12/12 1300 DC IV Multivitamins 1 TAB DAILY 12/16 1000 AC PO Multivitamins 1 TAB DAILY 12/13 1000 DC 12/15 PO 0912 Ondansetron HCl 4 MG Q6P PRN 12/15 1815 AC IV Ondansetron HCl 4 MG Q6P PRN 12/12 1445 DC IV Oxycodone/ 1 TAB Q4P PRN 12/15 1815 AC Acetaminophen PO Oxycodone/ 2 TAB Q4P PRN 12/15 1815 AC 12/15 Acetaminophen PO 2116 Oxycodone/ 1 TAB Q4P PRN 12/12 1445 DC Acetaminophen PO Oxycodone/ 2 TAB Q4P PRN 12/12 1445 DC 12/14 Acetaminophen PO 2255 Trimethobenzamide HCl 200 MG Q6P PRN 12/15 1815 AC IM Trimethobenzamide HCl 200 MG Q6P PRN 12/12 1445 DC IM Results Last 24 Hrs Lab/Beto Results: No labs
--- NOTE | 2017-12-15 16:21 | Operative Report ---
Operative/Inv Procedure Report Surgery Date: 12/15/17 Name of Procedure: Fusion mass inspection, cervical thoracic spine laminectomy decompression [id number] bilateral. Instrumented posterior fusion C4 to C7 18-gauge wire. Lateral fusion C4 to C7 with her slightest autologous bone graft. Harvesting morselized iliac crest left posterior iliac crest. Reconstruction of donor site with Master graft. Placement of Sullivan tongs removal of Sullivan tongs. Use of fluoroscopy. Pre-Operative Diagnosis: Unstable spine Post-Operative Diagnosis: Same Estimated Blood Loss: scant (200cc) Surgeon/Mill Dresser: Kanu RAMIREZ,Kyle SADLER Anesthesia: general endotracheal tube Operative/Procedure Note Note: After adequate general anesthesia was achieved patient placed in the Sullivan tongs log rolled into the prone position. The back of the neck and left posterior iliac crest were sterilely prepped and draped. Incision made in the midline and cervical spine and carried down dorsally with electrocautery the deep retractors were placed diffusion was inspected there is no evidence of gross motion. Metallic object was placed and fluoroscopy was used to identify surgical level after this the high-speed bur curettes and Kerrisons were used to create laminectomies at [id number] bilaterally. Corticotomies were created and the spinous processes of C4 and C7 18-gauge wires were passed twisted trimmed and bent to the midline. Incision made over the right posterior iliac crest carried down laterally subperiosteally. The curettes and osteotomes were used to collect morselized bone the wound was irrigated packed with Master graft and closed in layers with Vicryl suture with rashida in the skin. The pencil point bur was used to decorticate the facets bone was packed within the facets and laterally over the decorticated dorsal elements. The fusion was from C4 to C7. The wound was copiously irrigated a closure of the cervical fascia was performed with double suture as was subcutaneous tissue the skin was closed with rashida. Patient was placed a cervical collar log rolled off the operating table in the Sullivan tongs were removed.
[2017-12-15] MEDS ORDERED: CLEOCIN HCL300 M1 PO (17:27)
--- NOTE | 2017-12-15 19:27 | PN- Orthopedic ---
Subjective Subjective: POSTOP CHECK sleepy,arousable. hungry. no oob yet. no n/v, no cp/sob. deneis paresthesias. pain controlled w meds Objective Vital Signs and I&Os Vital Signs Date Time Temp Pulse Resp B/P B/P Pulse O2 O2 Flow FiO2 Mean Ox Delivery Rate 12/15 0454 98.2 73 20 122/78 95 12/14 2149 98.8 95 19 120/72 97 Room Air Intake & Output 12/15 0000 12/14 1600 12/14 0000 Intake Total 375 830 843 8428 1630 Output Total 362 628 1181 750 Balance 375 600 -170 -300 -250 880 Intake, IV 832 070 4608 Intake, Oral 0 480 1050 1630 Output, Urine 679 087 1150 750 Physical Exam: gen- nad card- s1s2 pulm- no audible wheeze abd- soft nt obese neck- soft collar in place, anterior dressing cdi, posterior dressing cdi. ttp at incisions. ext- calves obese, soft, nt, alps on bl. Assessment/Plan Assessment/Plan A- POD0 sp PCDF C4-7 with ICBG, POD3 sp ACDF w ICBG, POD6 sp PLDF with ICBG, currently stable, awaiting postop po intake/void/oob. P- soft collar reg diet as tolerated prn pain meds oob, ambulate pt eval in am- pt has many stairs at home in [facility] daily dry dressing changes superficial wound infection (lumbar site), continue clinda iv, dc on clinda po will karla attending Core Measures Venous Thromboembolism VTE Risk Factors Surgery No Mechanical VTE Prophylaxis d/t Early Ambulation No VTE Pharm Prophylaxis d/t Surgical Contraindication (surgeon preference)
--- NOTE | 2017-12-15 22:18 | RADIOLOGY REPORT ---
EXAMINATION: CR CERVICAL SPINE/INTRAOPERATIVE FLUOROSCOPY CLINICAL INDICATION: C4-C7 fusion. COMPARISON: Prior films from 12/12/2017. TECHNIQUE/FINDINGS: Fluoroscopic equipment was dedicated to the operating room for the performance of an intraoperative procedure. Single spot film was acquired and is archived in PACS. Please refer to operative notes for procedural detail. FLUOROSCOPY TIME: 0.1 minutes. IMPRESSION: Administrative dictation for intraoperative fluoroscopy and image archiving in PACS. Please refer to operative notes for details.
[2017-12-16 06:50] VITALS: BP 128/74
[2017-12-16 06:51] VITALS: BP 128/74
--- NOTE | 2017-12-16 08:11 | PN- Orthopedic ---
See Addendum Sherrell Chamberlain 12/16/17 0800: Subjective Subjective: No acute events overnight. Pain well controlled. Has been out of bed to bathroom only. Denies nausea, paresthesias. Tolerating diet, voiding spontaneously. Still on oxygen. Anticipates discharge home today. Objective Vital Signs and I&Os Vital Signs Date Time Temp Pulse Resp B/P B/P Pulse O2 O2 Flow FiO2 Mean Ox Delivery Rate 12/16 0651 98.2 82 20 128/74 95 12/16 0650 98.2 82 20 128/74 95 12/16 0000 95 Nasal 1.5L Cannula Intake & Output 12/16 1600 12/16 0800 12/16 0000 12/15 1600 12/15 0800 12/15 0000 Intake Total 1020 375 600 480 Output Total 800 1000 950 Balance 220 -1000 375 600 -470 Intake, IV 900 375 600 Intake, Oral 120 0 480 Output, Urine 800 1000 950 Physical Exam: General: CAD, NAD Lungs: Normal work of breathing. HEENT: CN II-XII grossly intact. Soft collar in place. Postoperative dressing to anterior/posterior neck, lumbar dressing clean, dry, intact. Extremities: Bilateral hands with good habilitation assistant strength, bilateral lower extremities. Sensation intact to all extremities. 5/5 plantar/dorsiflexion. SCDs in place, no calf tenderness. Current Medications: Current Medications Sig/Asim Start time Last Medication Dose Route Stop Time Status Admin Acetaminophen 650 MG Q4P PRN 12/15 1815 AC PO Acetaminophen 650 MG Q4P PRN 12/15 1815 AC PO Acetaminophen 650 MG Q4P PRN 12/12 1445 DC PO Acetaminophen 650 MG Q4P PRN 12/12 1300 DC PO Bisacodyl 10 MG DAILY NEEDED PRN 12/15 1815 AC CO Bisacodyl 10 MG DAILY NEEDED PRN 12/12 1445 DC CO Calcium 600 MG BID 12/15 2199 AC 12/15 PO 2115 Calcium 600 MG BID 12/12 2199 DC 12/15 PO 911 Cholecalciferol 1,000 IU DAILY 12/16 1000 AC PO Cholecalciferol 1,000 IU DAILY 12/13 1000 DC 12/15 PO 911 Clindamycin 600 MG IQ8 12/16 0000 AC 12/15 Dextrose/Water 50 ML IV 2333 Docusate Sodium 100 MG TID 12/15 2199 AC 12/15 PO 2115 Docusate Sodium 100 MG TID 12/12 1600 DC 12/15 PO 0912 Fentanyl Citrate 100 MCG .STK-MED ONE 12/15 1709 DC IM 12/15 1710 Fentanyl Citrate 250 MCG .STK-MED ONE 12/15 1350 DC IM 12/15 1351 Lactated Ringer's 1,000 ML Q10H 12/15 1730 AC 12/16 IV 0216 Lactated Ringer's 1,000 ML Q13H 12/15 0000 DC 12/14 IV 2255 Magnesium Hydroxide 30 ML Q8P PRN 12/15 1815 AC PO Magnesium Hydroxide 30 ML Q8P PRN 12/12 1445 DC 12/14 PO 0944 Midazolam HCl 2 MG .STK-MED ONE 12/15 1350 DC IM 12/15 1351 Morphine Sulfate 1 MG Q3P PRN 12/15 1815 AC IV Morphine Sulfate 1 MG Q3P PRN 12/12 1300 DC IV Multivitamins 1 TAB DAILY 12/16 1000 AC PO Multivitamins 1 TAB DAILY 12/13 1000 DC 12/15 PO 0912 Ondansetron HCl 4 MG Q6P PRN 12/15 1815 AC IV Ondansetron HCl 4 MG Q6P PRN 12/12 1445 DC IV Oxycodone/ 1 TAB Q4P PRN 12/15 1815 AC Acetaminophen PO Oxycodone/ 2 TAB Q4P PRN 12/15 1815 AC 12/15 Acetaminophen PO 2116 Oxycodone/ 1 TAB Q4P PRN 12/12 1445 DC Acetaminophen PO Oxycodone/ 2 TAB Q4P PRN 12/12 1445 DC 12/14 Acetaminophen PO 2255 Trimethobenzamide HCl 200 MG Q6P PRN 12/15 1815 AC IM Trimethobenzamide HCl 200 MG Q6P PRN 12/12 1445 DC IM Assessment/Plan Assessment/Plan Assessment: POD1 sp PCDF C4-7 with ICBG, POD4 sp ACDF w ICBG, POD7 sp PLDF with ICBG, stable. Plan: - Pain control: Percocet prn, discontinue IV pain medication - soft collar - reg diet, discontinue IVF - PT: WBAT, needs to ambulate on stairs - daily dry dressing changes per nursing - superficial wound infection (lumbar site), continue clinda IV - Dispo: Likely discharge today to [place] once clears PT, will need clindamycin po - Will discuss with attending Core Measures Venous Thromboembolism VTE Risk Factors Surgery No Mechanical VTE Prophylaxis d/t Early Ambulation No VTE Pharm Prophylaxis d/t Surgical Contraindication (surgeon preference) Anne Marie Bynum 12/16/17 0818: Objective Vital Signs and I&Os Vital Signs Date Time Temp Pulse Resp B/P B/P Pulse O2 O2 Flow FiO2 Mean Ox Delivery Rate 12/16 0651 98.2 82 20 128/74 95 12/16 0650 98.2 82 20 128/74 95 12/16 0000 95 Nasal 1.5L Cannula Intake & Output 12/16 1600 12/16 0800 12/16 0000 12/15 1600 12/15 0800 12/15 0000 Intake Total 1020 375 600 480 Output Total 800 1000 950 Balance 220 -1000 375 600 -470 Intake, IV 900 375 600 Intake, Oral 120 0 480 Output, Urine 800 1000 950
--- NOTE | 2017-12-16 08:25 | Surgical Discharge Summary ---
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 PLDF L1-2, L2-3, L3-4, and L4-5 with local bone 09/13/2013 Family History Relations & Conditions If Any: MOTHER (Alive and Well). Age 79. FATHER, , Age 70s; Cause: Myocardial infarction. BROTHER (Diabetes). Psychosocial History Where Do You Live? Home Who Do You Live With? Patient/Self What is Your Primary Language? Bhutanese ETOH Use: occasional use (2x/week) Other Addictive Behavior: . 3 children, 4 grandchildren Review of Systems: Refer to [facility] Hospital Course Course Attending Physician: Kyle Bobby MD Primary Care Physician: Patient Has No Primary Care Dr Hospital Course: Patient was admitted to the hospital for an previously stated surgeries on 2017, 12/12/2017, 12/15/2017. The procedures were tolerated well and patient was transferred to a general surgical floor. Diet was advanced and tolerated, and the patient voided spontaneously. The patient was evaluated and treated by physical therapy. At the time of hospital discharge, the vital signs were stable, neurovascular status was intact, and pain was controlled with the use of oral pain medications. She will continue clindamycin postoperatively for a superficial wound infection. Allergies: Coded Allergies: Penicillins (RASH 12/05/17) azithromycin (NAUSEA 12/05/17) ciprofloxacin (From CIPRO) (UNKNOWN 12/05/17) Significant Procedures: 12/09/2017: Lumbosacral inspection of fusion mass L1 S1 laminectomies L1-L2 L3 L4 L5. Discectomy foraminotomy L1 through L5. Pedicle screw fixation bilateral L2 -L3. Harvesting iliac crest right posterior bone graft. Reconstruction of graft site with Master graft. Lateral intertransverse process fusion L1-L2, L2- L3, L3-L4, L4-L5, L5-S1. Use of fluoroscopy. 12/12/2017: Anterior cervical discectomy fusion C4 5 C5-C6 C6 7 with interdiscal cage and autologous iliac crest bone graft through plate fixation C4 to C7. Harvesting of left anterior structural bone graft iliaccrest. Master graft implant graft site should fluoroscopy. 12/15/2017: Fusion mass inspection, cervical thoracic spine laminectomy decompression [id number] bilateral. Instrumented posterior fusion C4 to C7 18- gauge wire. Lateral fusion C4 to C7 with her slightest autologous bone graft. Harvesting morselized iliac crest left posterior iliac crest. Reconstruction of donor site with Master graft. Placement of Sullivan tongs removal of Sullivan tongs. Use of fluoroscopy. Pertinent Lab Results: 12/10/2017: CT CERVICAL SPINE WITHOUT CONTRAST CLINICAL INFORMATION: Neck pain. COMPARISON: No relevant prior imaging. TECHNIQUE: No relevant prior imaging. DLP: 341.84 mGy-cm FINDINGS: There is nonspecific straightening of the cervical lordosis. Alignment is otherwise normal. Vertebral body heights are preserved. There is no acute fracture. No abnormal prevertebral soft tissue swelling. There is loss of intervertebral disc height with associated sclerotic degenerative endplate changes and disc osteophyte spurring at the levels of C4-C5, C5-C6, and C6-C7. The canal is not well visualized below the level of C4 due to inherent limitations of CT. It is suspected that there is mild canal stenosis at C5-C6 and C6-C7. Asymmetric uncovertebral joint spurring causes moderate left neuroforaminal encroachment at C5-C6 and C6-C7. Mild right neuroforaminal encroachment at C6-C7. Soft tissues of the neck are unremarkable. Visualized lung apices are clear. IMPRESSION: Mild degenerative spondylosis at C4-C5, C5-C6, and C6-C7. No evidence of acute fracture and no spinal subluxation. Disposition Summary Disposition Principal Diagnosis: spinal stenosis Additional Diagnosis: osteoarthritis Discharge Disposition: home or self care Discharge Instructions General Discharge Information Code Status: Full Code Patient's Diet: Regular diet Patient's Activity: WBAT per PT recommendations Follow-Up Instructions/Appts: Follow up with Dr. Bobby, please call to schedule an appointment Daily dry gauze dressing changes to incisions Continue antibiotics for prescribed course Refer to discharge instructions Medications at Discharge Discharge Medications: Stop taking the following medications: Calcium Carbonate/Vitamin D3 (Calcium 500 + D Tablet) (Unknown Strength) TABLET ORAL DAILY Multivitamin/Iron/Folic Acid (Multi-Day Plus Iron Tablet) (Unknown Strength) TABLET ORAL DAILY Start taking the following new medications: Acetaminophen (Tylenol Extra Strength) 500 MG TABLET 1 Tablet ORAL THREE TIMES DAILY as needed for TEMP>101 Qty = 90 No Refills Comments: NOT GIVEN IN HOSPITAL Bisacodyl (Dulcolax) 10 MG SUPP.RECT 1 Suppository RECTAL DAILY as needed for CONSTIPATION Qty = 10 No Refills Comments: NOT GIVEN IN HOSPITAL Calcium Carbonate/Vitamin D3 (Os-Landon 500+D3 Caplet) 500 MG-200 TABLET 1 Tablet ORAL TWICE DAILY Qty = 60 No Refills Comments: CALCIUM CARBONATE 600 MG GIVEN IN HOSPITAL Last Taken: 12/16/17 Time: 10:12 AM Cholecalciferol (Vitamin D3) 1,000 UNIT TABLET 1 Tablet ORAL DAILY Qty = 30 No Refills Comments: Last Taken: 12/16/17 Time: 10:12 AM Docusate Sodium (Colace) 100 MG CAPSULE 1 Capsule ORAL TWICE DAILY as needed for CONSTIPATION Qty = 60 No Refills Comments: Last Taken: 12/16/17 Time: 10:12 AM Magnesium Hydroxide (Milk Of Magnesia) 400 MG/5 ML ORAL.SUSP 5 Milliliters ORAL EVERY 8 HOURS NEEDED as needed for CONSTIPATION Qty = 300 No Refills Comments: NOT GIVEN IN HOSPITAL Multiple Vitamin (Multivitamins) 1 EACH TABLET 1 Tablet ORAL DAILY Qty = 30 No Refills Comments: Last Taken: 12/16/17 Time: 10:12 AM Oxycodone HCl/Acetaminophen (Percocet 5-325 MG Tablet) 5 MG-325 MG TABLET 1-2 Tablet ORAL EVERY 4-6 HOURS as needed for PAIN Qty = 90 No Refills Comments: TWO TABLETS Last Taken: 12/16/17 Time: 10:13 AM Clindamycin HCl (Cleocin HCl) 300 MG CAPSULE 1 Capsule ORAL TWICE DAILY Qty = 14 No Refills Comments: NOT GIVEN IN HOSPITAL CLINDAMYCIN 600 MG IV GIVEN Last Taken: 12/16/17 Time: 8:53 AM Copies To: Kanu RAMIREZ,Kyle
[2017-12-16 14:04] VITALS: BP 132/69
--- NOTE | 2017-12-16 16:35 | PN- Orthopedic ---
Subjective Subjective: Patient c/o expected postop incisional pain. No preop pain. +BM and voiding without difficulty. Jeni. po. Taking Percocet without issues. Ambulating with walker unassisted. Review of Systems: Remarkable for the above complaints. Objective Vital Signs and I&Os Vital Signs Date Time Temp Pulse Resp B/P B/P Pulse O2 O2 Flow FiO2 Mean Ox Delivery Rate 12/16 1404 98.2 86 20 132/69 95 Nasal 1.0L Cannula 12/16 0800 94 Nasal 1.0L Cannula 12/16 0651 98.2 82 20 128/74 95 12/16 0650 98.2 82 20 128/74 95 12/16 0000 95 Nasal 1.5L Cannula Intake & Output 12/16 1600 12/16 0800 12/16 0000 12/15 1600 12/15 0812/15 0000 Intake Total 960 1020 375 600 480 Output Total 800 1000 950 Balance 960 220 -1000 375 600 -470 Intake, IV 900 375 600 Intake, Oral 960 120 0 480 Output, Urine 800 1000 950 Physical Exam General Appearance: well developed/nourished, no apparent distress, alert, awake Neck: Incisions C/D/I. Dressings changed. Respiratory: normal breath sounds, no respiratory distress Cardiovascular: regular rate/rhythm Abdomen: normal bowel sounds, soft, non-tender Back: Incision sl. moist with minimal drainage. No erythema. Dressings changed. Neurologic/Psychiatric: Neurovascularly stable with no new or worsening gross motor or sensory loss in floyd. upper and lower extremities. Skin: intact, normal color, warm/dry Current Medications: Current Medications Sig/Asim Start time Last Medication Dose Route Stop Time Status Admin Acetaminophen 650 MG Q4P PRN 12/15 1814 DCD PO Acetaminophen 650 MG Q4P PRN 12/15 181 DCD PO Acetaminophen 650 MG Q4P PRN 12/12 1445 DC PO Acetaminophen 650 MG Q4P PRN 12/12 1300 DC PO Bisacodyl 10 MG DAILY NEEDED PRN 12/15 1814 DCD RI Bisacodyl 10 MG DAILY NEEDED PRN 12/12 1445 DC RI Calcium 600 MG BID 12/150 DCD 12/16 PO 1012 Calcium 600 MG BID 12/12 2200 DC 12/15 PO 0912 Cholecalciferol 1,000 IU DAILY 12/16 1000 DCD 12/16 PO 1012 Cholecalciferol 1,000 IU DAILY 12/13 1000 DC 12/15 PO 0912 Clindamycin 600 MG IQ8 12/16 0000 DCD 12/16 Dextrose/Water 50 ML IV 0853 Docusate Sodium 100 MG TID 12/15 2200 DCD 12/16 PO 1012 Docusate Sodium 100 MG TID 12/12 1600 DC 12/15 PO 0912 Fentanyl Citrate 100 MCG .STK-MED ONE 12/15 1709 DC IM 12/15 1710 Lactated Ringer's 1,000 ML Q10H 12/15 1730 DC 12/16 IV 0216 Lactated Ringer's 1,000 ML Q13H 12/15 0000 DC 12/14 IV 2255 Magnesium Hydroxide 30 ML Q8P PRN 12/15 1815 DCD PO Magnesium Hydroxide 30 ML Q8P PRN 12/12 1445 DC 12/14 PO 0944 Morphine Sulfate 1 MG Q3P PRN 12/15 1815 DC IV Morphine Sulfate 1 MG Q3P PRN 12/12 1300 DC IV Multivitamins 1 TAB DAILY 12/16 1000 DCD 12/16 PO 1012 Multivitamins 1 TAB DAILY 12/13 1000 DC 12/15 PO 0912 Ondansetron HCl 4 MG Q6P PRN 12/15 1815 DCD IV Ondansetron HCl 4 MG Q6P PRN 12/12 1445 DC IV Oxycodone/ 1 TAB Q4P PRN 12/15 1815 DCD 12/16 Acetaminophen PO 1013 Oxycodone/ 2 TAB Q4P PRN 12/15 1815 DCD 12/15 Acetaminophen PO 2116 Oxycodone/ 1 TAB Q4P PRN 12/12 1445 DC Acetaminophen PO Oxycodone/ 2 TAB Q4P PRN 12/12 1445 DC 12/14 Acetaminophen PO 2255 Trimethobenzamide HCl 200 MG Q6P PRN 12/15 1815 DCD IM Trimethobenzamide HCl 200 MG Q6P PRN 12/12 1445 DC IM Assessment/Plan Assessment/Plan Assessment: 1. s/p PLDF L1-S1 with Instr. L2-3 2. s/p ACDF C4-7 3. s/p PCDF C4-7 4. Lumbar Wound irritation Plan: Ambulate with PT Continue Percocet prn and Bowel regimen Do's and Don'ts explained Disch. Instr. given Continue Cleocin for wound irritation. D/C home. Will F/U as outpatient Problem List: 1. Anemia 2. Renal stones 3. Osteoarthritis 4. Neck pain Core Measures Venous Thromboembolism VTE Risk Factors Surgery No Mechanical VTE Prophylaxis d/t Early Ambulation No VTE Pharm Prophylaxis d/t Surgical Contraindication (surgeon preference) Attending MD Review Statement Attending Statement Attending MD Statement: discuss w/resident/PA/INVESTMENT ASSOCIATE, agreed w/resident/PA/INVESTMENT ASSOCIATE
== END 2017-12-16 15:18 | DRG 454 ==
LOC: SDA 01:26 → ENRESERV 13:40 → ENTRNSPT 14:51 → EDTRNSPTSTS 14:53 → EDTRNSPT 14:53 → CMPTRNSPT 15:06 → 2NB 15:10 → ENTRNSPT 12-12 14:12 → EDTRNSPT 12-12 14:23 → EDTRNSPTSTS 12-12 14:23 → CMPTRNSPT 12-12 14:45 → ENTRNSPT 12-15 19:34 → CMPTRNSPT 12-15 19:59 → ENTRNSPT 12-16 14:52 → EDTRNSPTSTS 12-16 15:12 → EDTRNSPT 12-16 15:12 → 2NB 12-16 15:18 → CMPTRNSPT 12-16 15:37
PROVIDERS: Orthopaedic Surgery Orthopaedic Surgery of the Spine; Physician Assistant Surgical
PROC: 0QB00ZZ Excision of Lumbar Vertebra, Open Approach (ICD-10-PCS; principal; 2017-12-09)
PROC: 0SG3071 Fusion of Lumbosacral Joint with Autologous Tissue Substitute, Posterior Approach, Posterior Column, Open Approach (ICD-10-PCS; 2017-12-09)
PROC: 0QB20ZZ Excision of Right Pelvic Bone, Open Approach (ICD-10-PCS; 2017-12-09)
PROC: 0SG1071 Fusion of 2 or more Lumbar Vertebral Joints with Autologous Tissue Substitute, Posterior Approach, Posterior Column, Open Approach (ICD-10-PCS; 2017-12-09)
PROC: 0RB30ZZ Excision of Cervical Vertebral Disc, Open Approach (ICD-10-PCS; 2017-12-12)
PROC: 0QB30ZZ Excision of Left Pelvic Bone, Open Approach (ICD-10-PCS; 2017-12-12)
PROC: 0RG2070 Fusion of 2 or more Cervical Vertebral Joints with Autologous Tissue Substitute, Anterior Approach, Anterior Column, Open Approach (ICD-10-PCS; 2017-12-15)
PROC: 0RG2071 Fusion of 2 or more Cervical Vertebral Joints with Autologous Tissue Substitute, Posterior Approach, Posterior Column, Open Approach (ICD-10-PCS; 2017-12-15)
PROC: 0QB30ZZ Excision of Left Pelvic Bone, Open Approach (ICD-10-PCS; 2017-12-15)
DX: M48.02 Spinal stenosis, cervical region (principal); M50.023 Cervical disc disorder at C6-C7 level with myelopathy; Z68.43 Body mass index [BMI] 50.0-59.9, adult; E66.01 Morbid (severe) obesity due to excess calories; M47.27 Other spondylosis with radiculopathy, lumbosacral region; Z88.0 Allergy status to penicillin; Z88.1 Allergy status to other antibiotic agents; D64.9 Anemia, unspecified; Z98.1 Arthrodesis status; Z87.891 Personal history of nicotine dependence; N20.0 Calculus of kidney; Z87.442 Personal history of urinary calculi; M40.292 Other kyphosis, cervical region
CPT/HCPCS: 2NBP; 36415; 36592; 72020; 72040; 87086; 97116-GO; 97161-GP; 97164-GP; 97530-GO; C1713; C9399; J0131; J0690; J1100; J1644; J2405; J3250; J3490; J7120

== ENCOUNTER 2018-06-03 03:34 | Inpatient (IN) | payer OTHER ==
[~2018-06-03] VITALS: Ht 167.6 cm; Wt 145.2 kg
[~2018-06-03 03:34] MED LIST changes: +CLEOCIN HCL300 M1 PO; +COLACE100 M1 PO; +DULCOLAX10 M1 RC; +MILK OF MA400 MG/52 PO; +MULTIVITAMINS1 EAC9 PO; +OS-CAL 500+D31 EAC1 PO; +PERCOCET 5-3251 EACH PO; +TYLENOL EXTRA500 M2 PO; +VITAMIN D31000 UNI2 PO
--- NOTE | 2018-06-03 13:39 | Operative Report ---
Operative/Inv Procedure Report Surgery Date: 06/03/18 Name of Procedure: Posterior cervical inspection of fusion mass C4 C7 removal of hardware C4 C7. Laminectomies C4 5 6 7. Lateral fusion with local autologous bone C4 through C7. Pacemaker and removal of Sullivan tongs. Use of fluoroscopy. 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 Post-Operative Diagnosis: Same Estimated Blood Loss: less than 50ml Surgeon/Blending Coordinator: Kanu RAMIREZ,Kyle SADLER Anesthesia: general endotracheal tube Operative/Procedure Note Note: After adequate general anesthesia was achieved Sullivan tongs were applied and the patient was log rolled into the prone position. The back of the neck was sterilely prepped and draped the previous incision was entered sharply and a blunt dissection was carried bilaterally from C4 to C7. The spinous process was held with a towel clip gentle force was applied and there was gross motion seen at the facet joints bilaterally at the midportion of the fusion. The wire was found to be broken. It was easily removed fluoroscopy showed complete removal of all fragments and the level of the surgery. The high-speed bur was used with curettes to create laminectomies in the keyhole fashion at all 3 levels starting with C4 5 then C56 and C6 7. After the left-sided laminectomies the pencil point bur was used to generate local bone graft from the lamina and perforate the facet joints at all 3 levels bilaterally using C4 through C7. The wound was copiously irrigated a closure of the apical fascia was performed with absorbable suture the skin was closed with rashida. After placement sterile dressings the patient was log rolled off the operating table in the Sullivan tongs removed.
[2018-06-03] MEDS ORDERED: COLACE100 M1 PO (15:18)
[2018-06-03] MEDS ORDERED: MILK OF MA400 MG/52 PO (15:18)
[2018-06-03] MEDS ORDERED: PERCOCET 5-3251 EACH PO (15:18)
[2018-06-03] MEDS ORDERED: VITAMIN D31000 UNI2 PO (15:18)
[2018-06-03] MEDS ORDERED: TYLENOL EXTRA500 M2 PO (15:18)
[2018-06-03] MEDS ORDERED: DULCOLAX10 M1 RC (15:18)
[2018-06-03] MEDS ORDERED: OS-CAL 500+D31 EAC1 PO (15:18)
[2018-06-03] MEDS ORDERED: MULTIVITAMINS1 EAC9 PO (15:18)
--- NOTE | 2018-06-03 15:53 | RADIOLOGY REPORT ---
EXAMINATION: CR CERVICAL SPINE OR CLINICAL INFORMATION: C-spine laminectomy and fusion C4 C7 in OR. COMPARISON: 12/15/2017 TECHNIQUE: For lateral spot images were submitted. Fluoroscopic guidance was provided to Dr. Kyle Bobby as part of the C-spine fusion and laminectomy from C4 through C7. FLUOROSCOPY TIME: 0.2 minutes DOSE AREA PRODUCT: 0.179 mGy-m2 (milligray-meter squared) FINDINGS/IMPRESSION: Lateral spot images demonstrate ACDF plate and screw fixation hardware and interbody spacers from C4 through C7. Instrumentation is present at the posterior aspect of the C5 level on the last image, likely as part of the laminectomy.
--- NOTE | 2018-06-03 19:03 | PN- Orthopedic ---
Subjective Subjective: Patient seen postop. She is doing well without complaints moving all extremities without numbness or weakness no nausea, tolerating POs Objective Vital Signs and I&Os Vital Signs Date Time Temp Pulse Resp B/P B/P Pulse O2 O2 Flow FiO2 Mean Ox Delivery Rate 06/03 1700 96 Nasal 2.0L Cannula Intake & Output 06/03 1600 06/03 0800 06/03 0000 06/02 1600 06/02 0800 06/02 0000 Intake Total Output Total Balance Patient 310 lb Weight Physical Exam: ALert and oriented Pain controlled chest- CAT symmetric Heart- RRR without MRG Abdomen soft without distention bilateral lower extremities, calves soft, no edema motor 5/5 sensory intact bilateral upper extremites, motor 5/5 sensory returned to baseline with no further deficets Assessment/Plan Assessment/Plan postop exploration posterior fusion with removal of hardware for nonunion C4-7 revision fusion with laminectomy C4-7 with iliac bone graft doing wellpostop without complains pain controlled, VSS advance diet as tolarated OOB with assistance ALPS for DVT proph discharge planning for tomorrow Core Measures Venous Thromboembolism VTE Risk Factors Other No Mechanical VTE Prophylaxis d/t N/A MechProphylax Ordered No VTE Pharm Prophylaxis d/t NA PharmProphylax ordered
[2018-06-03 19:30] VITALS: BP 140/80
[2018-06-03 21:30] VITALS: BP 133/74
[2018-06-03 23:23] VITALS: BP 133/79
[2018-06-04 03:30] VITALS: BP 130/60
--- NOTE | 2018-06-04 12:08 | PN- Orthopedic ---
Subjective Subjective: Patient feels well this am. No complaints. Deneis chest pain, shortness of breath and difficulty breathing. Denies nausea and vomitting. Is eager for hospital discharge this morning. Objective Vital Signs and I&Os Vital Signs Date Time Temp Pulse Resp B/P B/P Pulse O2 O2 Flow FiO2 Mean Ox Delivery Rate 06/04 1025 Room Air 06/04 0330 98.1 72 71 130/60 97 06/04 0000 Nasal 2.0L Cannula 06/03 2323 97.9 71 18 133/79 97 Nasal 2.0L Cannula 06/03 2130 97.9 71 71 133/74 96 Nasal 2.0L Cannula 06/03 1930 97.9 72 18 140/80 94 Nasal 2.0L Cannula 06/03 1700 96 Nasal 2.0L Cannula Intake & Output 06/04 1600 06/04 0800 06/04 0000 06/03 1600 06/03 0800 06/03 0000 Intake Total 640 Output Total 900 Balance -260 Intake, IV 400 Intake, Oral 240 Output, Urine 900 Patient 320 lb Weight Weight Bed scale Measurement Method Physical Exam: General: Alert and oriented x3, no acute distress Cards: RRR, s1s2 Pulm: CTA, nonlabored respiratory effort Ext: Moves all extremities, neurovascular intact, calves soft/non-tender Surgical site: Posterior cervical, dressing dry and intact, no swelling, no evidence of active bleeding or hematoma. Assessment/Plan Assessment/Plan This is a 57 year old female, POD 1, s/p revision posterior cervical fusion 4-7 She is doing well -DC iv fluids -Plan for discharge later today To be seen by Miriam Alarcon and/or Dr. Bobby Core Measures Venous Thromboembolism VTE Risk Factors Other No Mechanical VTE Prophylaxis d/t N/A MechProphylax Ordered No VTE Pharm Prophylaxis d/t NA PharmProphylax ordered
--- NOTE | 2018-06-04 14:49 | Surgical Discharge Summary ---
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 PLDF L1-2, L2-3, L3-4, and L4-5 with local bone 09/13/2013 s/p R L4 -5 L5-S1 Decompression with local bone 06/2013 s/p Rev. L1-2, L2-3, L3-4, L4-5 Decompression with local bone 09/2013 s/p Rev. PLDF L1-2, L2-3, right L3-4, left L4-5 with ICBG L1-S1 and Instr. L2-3 12/09/17 S/p ACDF C4-7 with Instr/ICBG 12-12-17 s/p PCDF C4-7 with Instr./ICBG 12/15/17 Family History Relations & Conditions If Any: MOTHER (Alive and Well). Age 79. FATHER, , Age 70s; Cause: Myocardial infarction. BROTHER (Diabetes). Psychosocial History Where Do You Live? Home Who Do You Live With? Patient/Self What is Your Primary Language? Romansh Review of Systems: See H&P Hospital Course Course Attending Physician: Kyle Bobby MD Primary Care Physician: Patient Has No Primary Care Dr Hospital Course: Niki was admitted to the hospital and underwent a posterior cervical inspection of fusion mass C4 C7 removal of hardware C4 C7, laminectomies C4 5 6 7, lateral fusion with local autologous bone C4 through C7. She tolerated the procedure well and was transferred to a general surgical floor. Her diet was advanced and tolerated. She voided spontaneously. Throughout her hospital course and at the time of hospital discharge, her vital signs were stable and within normal limits and her neurovascular status remained grossly intact. She was evaluated by Miriam Alarcon PA-C and deemed appropriate for discharge. 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 Bobby and his affiliated team in [facility]. Medications at Discharge Discharge Medications: Start taking the following new medications: Acetaminophen (Tylenol Extra Strength) 500 MG TABLET 1 Tablet ORAL THREE TIMES DAILY as needed for TEMP>101 Qty = 90 No Refills Comments: not given in hospital Bisacodyl (Dulcolax) 10 MG SUPP.RECT 1 Suppository RECTAL DAILY as needed for CONSTIPATION Qty = 10 No Refills Comments: not given in hospital Calcium Carbonate/Vitamin D3 (Os-Landon 500+D3 Caplet) 500 MG-200 TABLET 1 Tablet ORAL TWICE DAILY Qty = 60 No Refills Comments: Last Taken:06/04/18 Time:0900am Cholecalciferol (Vitamin D3) 1,000 UNIT TABLET 1 Tablet ORAL DAILY Qty = 30 No Refills Comments: Last Taken:06/04/18 Time:0900am Docusate Sodium (Colace) 100 MG CAPSULE 1 Capsule ORAL TWICE DAILY as needed for CONSTIPATION Qty = 60 No Refills Comments: Last Taken:06/04/18 Time:0900am Magnesium Hydroxide (Milk Of Magnesia) 400 MG/5 ML ORAL.SUSP 5 Milliliters ORAL EVERY 8 HOURS NEEDED as needed for CONSTIPATION Qty = 300 No Refills Comments: not given in hospital Multiple Vitamin (Multivitamins) 1 EACH TABLET 1 Tablet ORAL DAILY Qty = 30 No Refills Comments: Last Taken:06/04/18 Time:0900am Oxycodone HCl/Acetaminophen (Percocet 5-325 MG Tablet) 5 MG-325 MG TABLET 1-2 Tablet ORAL EVERY 4-6 HOURS as needed for PAIN Qty = 90 No Refills Comments: 2 tabs given Last Taken:06/04/18 Time:0230am
[2018-06-04 15:12] VITALS: BP 119/66
== END 2018-06-04 15:45 | disposition home health service (06) | DRG 472 ==
LOC: SDA 03:34 → ENRESERV 16:09 → ENTRNSPT 16:15 → EDTRNSPT 16:28 → EDTRNSPTSTS 16:28 → 2NB 16:38 → CMPTRNSPT 16:51 → 2NB 06-04 15:45
PROC: 0RG2071 Fusion of 2 or more Cervical Vertebral Joints with Autologous Tissue Substitute, Posterior Approach, Posterior Column, Open Approach (ICD-10-PCS; principal; 2018-06-03)
PROC: 00NW0ZZ Release Cervical Spinal Cord, Open Approach (ICD-10-PCS; principal; 2018-06-03)
PROC: 0RB30ZZ Excision of Cervical Vertebral Disc, Open Approach (ICD-10-PCS; principal; 2018-06-03)
PROC: 0RP10AZ Removal of Interbody Fusion Device from Cervical Vertebral Joint, Open Approach (ICD-10-PCS; principal; 2018-06-03)
DX: M96.0 Pseudarthrosis after fusion or arthrodesis (principal); Z68.43 Body mass index [BMI] 50.0-59.9, adult; M48.02 Spinal stenosis, cervical region; Z88.0 Allergy status to penicillin; Z88.8 Allergy status to other drugs, medicaments and biological substances; E66.9 Obesity, unspecified; T85.848A Pain due to other internal prosthetic devices, implants and grafts, initial encounter
CPT/HCPCS: 2NBP; 76000; J0131; J3250; J3490; J7120